=== PATIENT | female | born 1955 | race Caucasian/White ===

== ENCOUNTER 2019-03-25 11:21 | Emergency (ER) | payer MEDICARE ==
[~2019-03-25] VITALS: Ht 157.5 cm; Wt 53.2 kg
--- NOTE | 2019-03-25 12:04 | NUR ---
patient arrives to er with afib rate 120's. patient was seen yesterday at [facility] for afib. they gave her metoprolol and diltiazem and she converted to a nsr and went home. then since she went right back into afib. no chest pain. patient states has history open heart mitral valve replacement after a code blue at [facility]. afib off and on.
[2019-03-25] MEDS ORDERED: SODIUM CHLORIDE FLUSH 10ML SYR IVF ONE (12:30)
--- NOTE | 2019-03-25 12:37 | NUR ---
PATIENT IN BED RAILS UP, IV IN PLACE ON MONITOR. CARDIOLOGY CONSULTING WITH PATIENT.
[2019-03-25 12:48] LABS: BASOPHILS # (AUTO) 0.03 x10^3/uL (0-0.1); BASOPHILS % (AUTO) 1 % (0-1); EOSINOPHILS # (AUTO) 0.05 x10^3/uL (0-0.4); EOSINOPHILS % (AUTO) 1 % (1-7); LYMPHOCYTES # (AUTO) 1.26 x10^3/uL (1-3.4); LYMPHOCYTES % (AUTO) 20 % (22-44); MD NO; MEAN CORPUSCULAR HEMOGLOBIN 30.7 pg (27.0-34.8); MEAN CORPUSCULAR HGB CONC 34.5 g/dL (32.4-35.8); MEAN CORPUSCULAR VOLUME 88.9 fL (80-100); MEAN PLATELET VOLUME 10.9 fL (7.4-10.4); MONOCYTES # (AUTO) 0.32 x10^3/uL (0.2-0.8); MONOCYTES % (AUTO) 5 % (2-9); NEUTROPHILS # (AUTO) 4.73 x10^3/uL (1.8-6.8); NEUTROPHILS % (AUTO) 74 % (42-75); PLATELET COUNT 187 x10^3/uL (130-400); RED BLOOD COUNT 5.02 x10^6/uL (3.82-5.3); RED CELL DISTRIBUTION WIDTH 12.9 % (9.6-15.2)
[2019-03-25 12:54] LABS: ALBUMIN 4.2 g/dL (3.4-5.0); ANION GAP 6 mmol/L (5-15); CALCIUM 9.6 mg/dL (8.5-10.1); CHLORIDE 108 mmol/L (98-107); CREATININE 0.77 mg/dL (0.55-1.02)
[2019-03-25 12:58] LABS: TROPONIN I < 0.015 ng/mL (0.000-0.045)
[2019-03-25] MEDS ORDERED: METOPROLOL TARTRATE 50 MG TABLET PO ONE (13:00)
[2019-03-25] MEDS ORDERED: METOPROLOL TARTRATE 25 MG TABLET ONE (13:00)
--- NOTE | 2019-03-25 13:08 | NUR ---
PATIENT IS CALM AND PLEASANT, READING HER BOOK. DENIES PAIN. RAILS UP, BLANKET GIVEN, ON MONITOR, NO S/S OF DISTRESS. MEDICATED. AWAITING ECHO.
--- NOTE | 2019-03-25 13:29 | NUR ---
Break RN: Echocardiogram in progress.
[2019-03-25 14:03] VITALS: BP 121/91
--- NOTE | 2019-03-25 14:04 | NUR ---
patient discharge teaching reviewed and shows understanding.
== END 2019-03-25 14:07 | disposition home or self-care (01) ==
LOC: ED 14:00
DX: I48.0 Paroxysmal atrial fibrillation (principal); Z95.4 Presence of other heart-valve replacement
CPT/HCPCS: 36415; 71045; 80048; 82040; 84484; 85025; 93005; 93306; 99284

== ENCOUNTER 2020-06-16 08:28 | Observation (INO) | payer MEDICARE, OTHER ==
[~2020-06-16] VITALS: Ht 156.2 cm; Wt 52.7 kg
[2020-06-16] MEDS: SODIUM CHLORIDE 0.9% 1,000 ML IV SCH ×3 (08:51→21:29)
[2020-06-16 08:57] VITALS: BP 149/69
[2020-06-16] MEDS ORDERED: CEFAZOLIN PMX 1GM/50ML 50 ML IVPB ONE (09:00)
[2020-06-16] MEDS ORDERED: LEVO50TA PO (09:07)
[2020-06-16] MEDS ORDERED: ASPI-496 PO (09:07)
[2020-06-16 09:21] LABS: BASOPHILS # (AUTO) 0.04 x10^3/uL (0-0.1); BASOPHILS % (AUTO) 1 % (0-1); EOSINOPHILS # (AUTO) 0.08 x10^3/uL (0-0.4); EOSINOPHILS % (AUTO) 2 % (1-7); LYMPHOCYTES # (AUTO) 1.39 x10^3/uL (1-3.4); LYMPHOCYTES % (AUTO) 25 % (22-44); MD NO; MEAN CORPUSCULAR HEMOGLOBIN 29.9 pg (27.0-34.8); MEAN CORPUSCULAR HGB CONC 33.4 g/dL (32.4-35.8); MEAN CORPUSCULAR VOLUME 89.5 fL (80-100); MONOCYTES # (AUTO) 0.46 x10^3/uL (0.2-0.8); MONOCYTES % (AUTO) 8 % (2-9); NEUTROPHILS % (AUTO) 65 % (42-75); PLATELET COUNT 174 x10^3/uL (130-400); RED BLOOD COUNT 4.69 x10^6/uL (3.82-5.3); RED CELL DISTRIBUTION WIDTH 13.1 % (9.6-15.2)
[2020-06-16 09:57] LABS: CALCIUM 9.7 mg/dL (8.5-10.1)
[2020-06-16 10:03] LABS: ANION GAP 7 mmol/L (5-15); CHLORIDE 105 mmol/L (98-107); CREATININE 0.72 mg/dL (0.55-1.02)
[2020-06-16] MEDS ORDERED: MIDAZOLAM 1 MG/ML, 5ML ONE (13:26)
[2020-06-16] MEDS ORDERED: CEFAZOLIN 1,000 MG ONE (13:26)
[2020-06-16] MEDS ORDERED: FENTANYL PF 250 MCG/5ML ONE (13:26)
[2020-06-16] MEDS ORDERED: CEFAZOLIN PMX 1GM/50ML 50 ML ONE (13:26)
[2020-06-16] MEDS ORDERED: LIDOCAINE 1%, 20ML ONE (13:26)
[2020-06-16] MEDS ORDERED: HOLD MEDICATION MC PRN (14:30)
[2020-06-16] MEDS: ACETAMINOPHEN 325 MG TABLET PO PRN ×2 (17:08→22:36)
[2020-06-16 18:40] VITALS: BP 102/53
[2020-06-16] MEDS: CEFAZOLIN PMX 1GM/50ML 50 ML IVPB SCH (20:49)
[2020-06-16] MEDS: SODIUM CHLORIDE FLUSH 10ML SYR IVF SCH (20:49)
[2020-06-17 02:25] VITALS: BP 125/78
[2020-06-17] MEDS: CEFAZOLIN PMX 1GM/50ML 50 ML IVPB SCH (05:00)
[2020-06-17] MEDS ORDERED: LEVOTHYROXINE 50 MCG TABLET PO SCH (06:00)
[2020-06-17 07:47] VITALS: BP 121/76
[2020-06-17] MEDS: SODIUM CHLORIDE 0.9% 1,000 ML IV SCH (08:51)
[2020-06-17] MEDS: SODIUM CHLORIDE FLUSH 10ML SYR IVF SCH (08:56)
[2020-06-17] MEDS ORDERED: ASPIRIN 81 MG TABLET EC PO SCH (09:00)
[2020-06-17] MEDS: ACETAMINOPHEN 325 MG TABLET PO PRN (09:06)
== END 2020-06-17 11:32 | disposition home or self-care (01) ==
LOC: CACL 08:28 → 5SO 14:21 → DCLOUNGE 06-17 11:21
PROVIDERS: ADMIT Internal Medicine Cardiovascular Disease; ATTEND Internal Medicine Cardiovascular Disease
DX: I48.91 Unspecified atrial fibrillation (principal); I49.5 Sick sinus syndrome; E03.9 Hypothyroidism, unspecified; I05.0 Rheumatic mitral stenosis; Z79.82 Long term (current) use of aspirin; Z79.899 Other long term (current) drug therapy; Z95.4 Presence of other heart-valve replacement
CPT/HCPCS: 33208; 36005; 36415; 71045; 71046; 80048; 85025; 96365; 96366; 99156; 99157; C1779; C1785; C1892; G0378; J0690; J2250; J3010; J3490; Q9967